=== PATIENT | male | born 1970 ===

== ENCOUNTER 2018-04-10 13:01 | Emergency (ER) | payer BC, OTHER ==
[2018-04-10 15:37] VITALS: BP 156/80
--- NOTE | 2018-04-10 16:17 | RAD ---
INDICATION: Left knee pain and swelling. TECHNIQUE: 4 views of the left knee were obtained. FINDINGS: The bones are in normal alignment. There is a joint effusion present. No fracture is seen. Joint spaces appear maintained. IMPRESSION: JOINT EFFUSION.
--- NOTE | 2018-04-10 16:38 | UC ---
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 - History of Current Complaint Chief Complaint: UCLowerExtremity Stated Complaint: KNEE PAIN Time Seen by Provider: 04/10/18 15:27 Hx Obtained From: Patient Onset/Duration: Gradual Onset, Lasting Days Severity Initially: Mild Severity Currently: Mild Pain Intensity: 4 Pain Scale Used: 0-10 Numeric Character: Dull, Aching Aggravating Factor(s): Weight Bearing Alleviating Factor(s): Rest Associated Signs And Symptoms: Positive: Swelling Able to Bear Weight: Yes - Allergies/Home Medications Allergies/Adverse Reactions: Allergies Allergy/AdvReac Type Severity Reaction Status Date / Time No Known Allergies Allergy Verified 04/10/18 15:37 Home Medications: Home Medications Acetaminophen/Diphenhydramine [Tylenol Pm Ex-Strength Caplet] 04/10/18 [History ] PMH/Surg Hx/FS Hx/Imm Hx Previously Healthy: Yes - Surgical History Surgical History: None Surgery Procedure, Year, and Place: transphenoidal laser - Family History Known Family History: Positive: Cardiac Disease, Hypertension - Social History Alcohol Use: None Substance Use Type: None Smoking Status (MU): Never Smoked Tobacco Review of Systems Constitutional: Negative Skin: Negative Eyes: Negative ENT: Negative Respiratory: Negative Cardiovascular: Negative Gastrointestinal: Negative Genitourinary: Negative Motor: Negative Neurovascular: Negative Musculoskeletal: Arthralgia Neurological: Negative Psychological: Negative Is Patient Immunocompromised?: No All Other Systems Reviewed And Are Negative: Yes Physical Exam Triage Information Reviewed: Yes Appearance: Well-Appearing, No Pain Distress, Well-Nourished Vital Signs: Initial Vital Signs Temp 100.8 F 04/10/18 15:28 Pulse 100 04/10/18 15:28 Resp 16 04/10/18 15:28 BP 156/80 04/10/18 15:28 Pulse Ox 100 04/10/18 15:28 Vital Signs Reviewed: Yes Eyes: Positive: Conjunctiva Clear ENT: Positive: Hearing grossly normal. Negative: Nasal congestion, Nasal drainage, Trismus, Muffled voice, Hoarse voice Neck: Positive: Supple, Nontender, No Lymphadenopathy Respiratory: Positive: Lungs clear, Normal breath sounds, No respiratory distress Cardiovascular: Positive: RRR, No Murmur Musculoskeletal: Positive: Other: - moderate sized left knee effusion/not hot/ not red/near full ROM slight medial joint line tenderness Neurological: Positive: Alert Psychological Exam: Normal Skin Exam: Normal Diagnostics - Radiology No standard instances Xray Interpretation: Positive (See Comments) - JOINT EFFUSION Radiology Interpretation Completed By: Radiologist Knee Pain Course/Dx - Course Course Of Treatment: due to fever/effusion and his profession will rx for Lyme disease pending the lab results. The patient is not septic appearing/ he has very could ROM despite effusion. I don't suspect a septic joint but lyme arthritis is certainly a diagnositic possiblity - Differential Dx/Diagnosis Provider Diagnoses: left knee effusion of uncertain etiology. ? lyme arthritis Discharge - Sign-Out/Discharge Documenting (check all that apply): Discharge/Admit/Transfer - Discharge Plan Condition: Stable Disposition: HOME Prescriptions: DOXYcycline CAP(*) [DOXYcycline 100MG CAP(*)] 100 mg PO BID #28 cap Patient Education Materials: Lyme Disease (ED), Swollen Knee Joint (ED) Referrals: Bill Verduzco MD [Medical Doctor] - (follow up with him next week if not improved) Chavo DESIR,[place]inc[place] Brady [Medical Doctor] - (follow up with him if lyme test (+)) Additional Instructions: I am unsure of the cause of your knee swelling Will start doxy due to your profession and low grade temp If knee pain worsens see orthopedist If lyme test is (+) follow up with infectious disease doctor aleve 2 pills twice daily - Billing Disposition and Condition Condition: STABLE Disposition: Home
[2018-04-11 11:32] LABS: Hematocrit 43 % (42-52); Hemoglobin 14.3 g/dl (14.0-18.0); Mean Corpuscular HGB Conc 33 g/dl (31-36); Mean Corpuscular Hemoglobin 28 pg (27-31); Mean Corpuscular Volume 86 fL (80-94); Mean Platelet Volume 9.4 um3 (7.4-10.4); Platelet Count 172 10^3/ul (150-450); Red Blood Count 5.05 10^6/ul (4.00-5.40); Red Cell Distribution Width 14 % (10.5-15); White Blood Count 10.3 10^3/ul (3.5-10.8)
--- NOTE | 2018-04-13 16:20 | UC ---
- Progress Note Progress Note: Inital Lyme serology is Positive, IgG and Igm pending, patient was treated with Doxycyline for 14 days, recommend follow up with ID. Discharge - Sign-Out/Discharge Documenting (check all that apply): Post-Discharge Follow Up - Discharge Plan Condition: Stable Disposition: HOME Prescriptions: DOXYcycline CAP(*) [DOXYcycline 100MG CAP(*)] 100 mg PO BID #28 cap Patient Education Materials: Lyme Disease (ED), Swollen Knee Joint (ED) Referrals: Bill Verduzco MD [Medical Doctor] - (follow up with him next week if not improved) Chavo DESIR,[place]incito Brady [Medical Doctor] - (follow up with him if lyme test (+)) Additional Instructions: I am unsure of the cause of your knee swelling Will start doxy due to your profession and low grade temp If knee pain worsens see orthopedist If lyme test is (+) follow up with infectious disease doctor aleve 2 pills twice daily - Billing Disposition and Condition Condition: STABLE Disposition: Home
== END 2018-04-10 16:45 | disposition home or self-care (01) ==
LOC: UCEAST 13:01
DX: M25.462 Effusion, left knee (principal); M25.562 Pain in left knee
CPT/HCPCS: 36415; 85027; 85652; 86617; 86618; 99201; G0463